=== PATIENT | female | born 1975 | race Caucasian/White ===

== ENCOUNTER 2020-08-17 11:30 | Outpatient (CLI) | payer OTHER | END 2020-08-17 12:00 | LOC: D.MAMMO 11:30 | PROVIDERS: ATTEND Nurse Practitioner Family | DX: Z12.31 Encounter for screening mammogram for malignant neoplasm of breast (principal) ==

== ENCOUNTER → 2020-09-18 11:42 | Outpatient (CLI) | payer OTHER | END | disposition home or self-care (01) | LOC: D.US 11:30 | PROVIDERS: ATTEND Nurse Practitioner Family | DX: N63.23 Unspecified lump in the left breast, lower outer quadrant (principal) ==